=== PATIENT | female | born 1985 | race Two or more races ===

== ENCOUNTER 2024-05-13 21:53 | Emergency (ER) | payer MEDICAID, SELFPAY ==
[2024-05-13 22:03] VITALS: BP 108/74; PULSE 80; RESP 16; TEMP 36.6; O2SAT 98
--- NOTE | 2024-05-13 22:14 | PD.EDRME ---
Rapid Medical Screening Exam RME Arrival date/time: 05/13/24 21:53 38 year old female present to Ed for c/o of flank/dysuria. I have greeted and performed a focused initial assessment of this patient. A comprehensive ED assessment and evaluation of the patient, analysis of all test results, and completion of the medical decision making process will be conducted by additional ED providers. Chief Complaint: Urogenital-Female Vital signs: Vital Signs Temperature 97.9 F 05/13/24 22:03 Pulse Rate 80 05/13/24 22:03 Respiratory Rate 16 05/13/24 22:03 Blood Pressure 108/74 05/13/24 22:03 Pulse Oximetry (%) 98 05/13/24 22:03 Oxygen Delivery Method Room Air 05/13/24 22:03
[2024-05-13 22:44] LABS: Basophils % (Auto) 0 % (0-2.5); Eosinophils # (Auto) 0.1 Thou/mm3 (0.0-0.5); Eosinophils % (Auto) 1 % (0-10); Hematocrit 34.7 % (36.0-46.0); Hemoglobin 12.8 g/dL (12.0-16.0); Immature Granulocytes % (Auto) 0 % (0-0); Immature Granulocytes Auto 0.03 Thou/mm3 (0.00-0.00); Lymphocytes # (Auto) 3.1 Thou/mm3 (1.0-4.8); Lymphocytes % (Auto) 29 % (10-50); Mean Corpuscular HGB Conc 36.9 g/dl (31.0-37.0); Mean Corpuscular Hemoglobin 32.4 pg (25.0-35.0); Mean Corpuscular Volume 88 fL (80-100); Monocytes # (Auto) 0.8 Thou/mm3 (0.0-0.8); Monocytes % (Auto) 7 % (0-12); Neutrophils # (Auto) 6.6 Thou/mm3 (1.8-7.7); Neutrophils % (Auto) 62 % (37-80); Nucleated Red Blood Cell % 0 /100 WBC (0); Platelet Count 324 Thou/mm3 (140-440); RDW Standard Deviation 37.4 fL (36.4-46.3); Red Blood Count 3.95 Miln/mm3 (4.00-5.20); White Blood Count 10.6 Thou/mm3 (3.6-11.0)
[2024-05-13 22:56] LABS: HCG,Qualitative Serum Negative
[2024-05-13 22:59] LABS: Collection Type, Urine Voided
[2024-05-13 23:00] LABS: Alanine Aminotransferase 71 U/L (10-49); Albumin, Serum 4.3 gm/dL (3.5-5.0); Albumin/Globulin Ratio 1.3 (1.2-2.2); Alkaline Phosphatase 95 U/L (46-116); Anion Gap 9 (7-16); Aspartate Amino Transferase 29 U/L (0-34); BUN/Creatinine Ratio 16 Ratio (12-20); Bilirubin,Total 0.2 mg/dL (0.3-1.2); Blood Urea Nitrogen 11 mg/dL (9-23); Calcium 9.8 mg/dL (8.3-10.6); Calcium (Corrected) 9.8 mg/dL (8.5-10.1); Carbon Dioxide 24.8 mMol/L (20.0-31.0); Chloride 103 mMol/L (98-107); Creatinine (Component) 0.7 mg/dL (0.6-1.3); Estimated Creatinine Clearance 91.4 mL/min (>60); Globulin 3.3 gm/dL (2.3-3.5); Glucose 128 mg/dL (74-106); Lipase 47 U/L (12-53); Osmolality,Calculated 275 (275-295); Potassium 3.5 mMol/L (3.4-5.1); Sodium 137 mMol/L (136-145); Total Protein 7.6 gm/dL (5.7-8.2); eGFR > 60 See Note
[2024-05-13 23:33] LABS: Bilirubin,Urine Negative (Negative); Blood,Urine Negative (Negative); Clarity,Urine Clear (Clear/Hazy); Color,Urine Colorless (Lt Yel-Yel); Glucose, Urine Negative (Negative); Ketones,Urine Trace (Negative); Leukocyte Esterase,Urine Negative (Negative); Nitrite,Urine Negative (Negative); Protein,Urine Negative (Neg - Trace); RBC,Urine 1 /hpf (0-3); Specific Gravity,Urine 1.016 (1.001-1.035); Squamous Epithelial Cell,Urine 2 /hpf (0-5); Urobilinogen,Urine Negative mg/dL (0.0-1.0); WBC,Urine 1 /hpf (0-5)
[2024-05-14] MEDS: KETOROLAC INJ 60 MG/2 ML VIAL 30 MG IM
--- NOTE | 2024-05-14 03:12 | XR_ITS ---
Examination: CT abdomen and pelvis without contrast. Coronal 3-D reconstructions. Sagittal 2-D reconstructions. Date and time of exam:May 14, 2024 0343 hrs. Indications: Onset left-sided flank pain today CTDI: vol (mGy): 6.67 DLP: (mGycm): 320 Technique: Axial images of the abdomen have been obtained, 3 mm slice thickness Intravenous contrast material has not been administered. Low dose protocols were performed. One or more of the following dose reduction techniques were used; automated exposure control, adjustment of the mA and/or KV according to patient size, use of iterative reconstruction technique. Findings: Atelectasis and/or pneumonia right base and right middle lobe Severe diffuse fatty infiltration throughout the liver with hepatomegaly 19 cm Spleen is not enlarged Contracted gallbladder with possible gallbladder sludge No pancreatic or adrenal mass No renal or ureteral calculi, no hydronephrosis Aorta normal size Small fat-containing umbilical hernia Normal appendix Colonic diverticulosis 3.4 cm possible left adnexal cyst Urinary bladder intact Moderate osteopenia Impression: Atelectasis versus pneumonia in the right lower lobe and right middle lobe, recommend PA lateral chest follow-up Hepatomegaly with severe diffuse fatty infiltration throughout the liver Recommend hepatobiliary sonography to exclude gallbladder sludge/stones No renal or ureteral calculi, no hydronephrosis Normal appendix Recommend pelvic sonography to assess 3.4 cm left adnexal hypodense mass which may represent a cyst
--- NOTE | 2024-05-14 04:16 | PRELIM_ITS ---
CT scan of the abdomen and pelvis without intravenous contrast (axial sections with sagittal and мария nal reformats) May 14, 2024 at 0343 hours Clinical History: Flank pain for 1 week r/o kidney sto ne. Comparison: None.Findings:Partially imaged right lung consolidation.The gallbladder, pancreas, sp mirian, kidneys and adrenals are unremarkable on this noncontrast study.Hepatomegaly associated with l iver steatosis is suspicious for steatohepatitis.No evidence of bowel obstruction. The appendix is wi thin normal limits.There is no mesenteric or retroperitoneal adenopathy.The urinary bladder is unrema rkable. There is no free fluid or free air.The osseous structures are unremarkable.Fecal loading.Left ovarian cystic lesion measuring 3.7 cm.Impression:1. Hepatomegaly associated with liver steatosis, s uspicious for steatohepatitis.2. Partially imaged right lung consolidations, atelectasis versus scarr ing versus pneumonia. Please, correlate clinically.3. Left ovarian cystic lesion, probably functiona l. Consider correlation with pelvic ultrasound if clinically indicated.4. No evidence of kidney or ur eteral stones.5. Fecal loading. Report Electronically Signed By: Tru Galvin 05/14/2024 4:15:12 AM [EST]
--- NOTE | 2024-05-14 04:45 | EDNOTE_ITS ---
ED Female Urogenital RME/HPI General Chief complaint: Urogenital-Female Stated complaint: L FLANK PAIN, DYSURIA Time Seen by Provider: 05/13/24 22:33 Arrival date/time: 05/13/24 21:53 Limitations: no limitations RME / HPI RME / HPI Narrative: 05/13/24 21:53 38 year old female present to Ed for c/o of flank/dysuria. I have greeted and performed a focused initial assessment of this patient. A comprehensive ED assessment and evaluation of the patient, analysis of all test results, and completion of the medical decision making process will be conducted by additional ED providers. ------ Dr. Danielle's Main ED Evaluation: 38yo female presents to the ED for a chief complaint of left flank pain x 1 week. Patient states her pain is constant and radiates to her back, rating it a 6 out of 10 in severity. She states she's been unable to sleep tonight. She last took Tylenol yesterday without any improvement. She states she feels distended due to not having her menses regularly since November. Patient reports associated constipation. She denies any fever, chills, cough, shortness of breath or any other associated symptoms. Denies any tobacco use. No known allergies. Related Data Previous Rx's ?Medication ?Instructions ?Recorded albuterol sulfate 90 mcg/actuation 1 puff inhalation Q6H PRN SOB #8 07/05/19 aerosol inhaler grams omeprazole 40 mg capsule,delayed 40 mg PO QDAY #30 caps 08/28/20 release albuterol sulfate 90 mcg/actuation 2 puff inhalation Q4H PRN 03/21/22 aerosol inhaler shortness of breath or wheezing #8.5 grams polyethylene glycol 3350 17 17 g PO QDAY constipation 7 days 05/14/24 gram/dose oral powder (ClearLax) #119 grams Allergies Allergy/AdvReac Type Severity Reaction Status Date / Time No Known Allergies Allergy Verified 08/28/20 20:31 Review of Systems Review of Systems Systems Reviewed: All systems reviewed, normal except as documented Past Medical History Past Medical History NEUROLOGIC: Negative Neurological Disorders CARDIAC: Negative Cardiac Disorders or Congestive Heart Failure RESPIRATORY: Positive Asthma; Negative Chronic Obstructive Pulmonary Disease (COPD) GASTROINTESTINAL: Negative Gastrointestinal Disorders GENITOURINARY: Negative Genitourinary Disorders or Renal Disease MUSCULOSKELETAL: Negative Musculoskeletal Disorders ENDOCRINE: Negative Endocrine Disorders, Diabetes Mellitus Type 1 or Diabetes Mellitus Type 2 HEMATOLOGIC: Negative Blood Disorders Family History FAMILY HISTORY: Negative Family Cardiac Disorders Surgical History SURGICAL: Negative Cardiac Surgery, Endocrine Surgery, Ear Surgery, Abdominal Surgery, Nephrectomy, Joint Replacement, Neurologic Surgery or Section Social History SMOKING STATUS: Never smoker ED Exam General Limitations: Present no limitations General appearance: Present alert and in no apparent distress Head Head exam: Present atraumatic Eye Eye exam: Present normal appearance, PERRL and EOMI ENT ENT exam: Present normal exam, normal oropharynx and mucous membranes moist Neck Neck exam: Present normal inspection, full ROM and trachea midline Chest Chest inspection: Present normal inspection and symmetric chest wall rise Respiratory Respiratory exam: Present normal lung sounds bilaterally Cardiovascular Cardiovascular exam: Present regular rate, normal rhythm and normal heart sounds Abdominal Exam Abdominal exam: Present soft, normal bowel sounds and other (big abdomen); Absent rebound Extremities Exam Extremities exam: Present normal inspection and full ROM Back Exam Back exam: Present normal inspection and full ROM; Absent CVA tenderness (R) or CVA tenderness (L) Neurological Exam Neurological exam: Present alert, oriented X3 and CN II-XII intact Psychiatric Psychiatric exam: Present normal affect and normal mood Skin Skin exam: Present warm, dry, intact and normal color Course Quality Measures none Orders Category Date Time Status CT abdomen pelvis wo con Stat Exams 05/14/24 03:12 Taken CBC Stat Lab 05/13/24 22:29 Completed CMP [Comprehensive Metabolic Panel] Stat Lab 05/13/24 22:29 Completed HCG,Qualitative Serum Stat Lab 05/13/24 22:29 Completed Lipase Stat Lab 05/13/24 22:29 Completed UA [Urinalysis] Stat Lab 05/13/24 22:54 Completed Urine Culture Stat Lab 05/13/24 22:15 Received Ketorolac Inj [Toradol Inj] Med 05/13/24 23:49 Discontinued 30 mg IM X1 ONE Vital Signs Vital signs: Vital Signs Temperature 97.9 F 05/13/24 22:03 Pulse Rate 80 05/13/24 22:03 Respiratory Rate 16 05/13/24 22:03 Blood Pressure 108/74 05/13/24 22:03 Pulse Oximetry (%) 98 05/13/24 22:03 Oxygen Delivery Method Room Air 05/13/24 22:03 Pulse ox is 98% on room air, which is normal according to my interpretation. Urogenital - Female Patient data External records reviewed:: [facility] previous records (Per chart review, patient was seen here on 05/02/20 for a UTI.) Clinical information provided by:: patient Social determinants that could affect healthcare access:: none Patient has the following chronic illnesses:: asthma How is presenting disease/condition affected by chronic disease/condition?: uneffected by Evaluation data The following diagnostics were reviewed and interpreted by me:: lab results and radiology exam(s) Lab and/or radiology exams considered but not ordered:: none Interpretation Summary: CBC is normal, CMP is normal, Lipase is normal, HCG is negative, UA is unrem arkable, according to my interpretation. ---- I have personally reviewed the radiology data and agree with the radiologist's interpretation below: Telerad Preliminary Report Draft Patient: MICAH LEE Record#: [id number] Birthdate: 1985 Age/Sex: 38 / F Location: [facility] Attending Dr: Ordering Physician: Date of Service: Procedure(s): Accession Number(s): cc: ~ CT scan of the abdomen and pelvis without intravenous contrast (axial sections with sagittal and coronal reformats) May 14, 2024 at 0343 hours Clinical History: Flank pain for 1 week r/o kidney stone. Comparison: None. Findings: Partially imaged right lung consolidation. The gallbladder, pancreas, spleen, kidneys and adrenals are unremarkable on this noncontrast study. Hepatomegaly associated with liver steatosis is suspicious for steatohepatitis. No evidence of bowel obstruction. The appendix is within normal limits. There is no mesenteric or retroperitoneal adenopathy. The urinary bladder is unremarkable. There is no free fluid or free air. The osseous structures are unremarkable. Fecal loading. Left ovarian cystic lesion measuring 3.7 cm. Impression: 1. Hepatomegaly associated with liver steatosis, suspicious for steatohepatitis. 2. Partially imaged right lung consolidations, atelectasis versus scarring versus pneumonia. Please, correlate clinically. 3. Left ovarian cystic lesion, probably functional. Consider correlation with pelvic ultrasound if clinically indicated. 4. No evidence of kidney or ureteral stones. 5. Fecal loading. Report Electronically Signed By: Tru Galvin 05/14/2024 4:15:12 AM [EST] Medications / Prescriptions Medications or Prescriptions considered but not ordered:: none Medication administrations:: Medication Administration History Discontinued Medications Ketorolac Tromethamine (Ketorolac Inj 60 Mg/2 Ml Vial) 30 mg IM X1 ONE Stop: 05/13/24 23:50 Last Admin: 05/14/24 00:00 Dose: 30 mg Documented By: OA see above Consultations Consultation(s) initiated? (list below): No Diagnosis Urogenital Female Differential Diagnosis: urinary tract infection and other (kidney stone, constipation, atelectasis, GERD) Most likely diagnosis given after review of the tests above:: see below Admission Indicated Admission indicated?: not indicated Admission Request Was there a request for admission?: No Disposition Plan Disposition Plan: Discharge Discharge Attestation Discharge Attestation: The patient and all family members were given an opportunity to ask questions and understood the discharge instructions. Discharge instructions specifically effects, indications for sooner follow up or return to the emergency department, and the expected course of current diagnosis. Patient condition: Stable Discharge Plan Plan Patient Disposition: HOME (Self Care) Prescriptions/Referrals Prescriptions/Med Rec: New polyethylene glycol 3350 [ClearLax] 17 gram/dose powder 17 g PO QDAY 7 Days Qty: 119 0RF No Action omeprazole 40 mg capsule,delayed release(DR/EC) 40 mg PO QDAY Qty: 30 0RF albuterol sulfate 90 mcg/actuation HFA aerosol inhaler 1 puff INH Q6H PRN (Reason: SOB) Qty: 8 0RF albuterol sulfate 90 mcg/actuation HFA aerosol inhaler 2 puff inhalation Q4H PRN (Reason: shortness of breath or wheezing) Qty: 8.5 0RF Referrals: No Primary/Family,Physician [Primary Care Provider] - In 1 week Problem List Clinical Impression: Ovarian cyst, Acute left flank pain Patient/Caregiver Discharge Instructions Education Materials: ED Pain, Acute, Uncertain Cause Print Language: Ukrainian Stand Alone Forms: Mariana Award Info., Patient Portal Info Letter
[2024-05-14 05:02] VITALS: BP 110/70; PULSE 88; RESP 18; TEMP 36.7; O2SAT 99
== END 2024-05-14 05:04 | disposition home or self-care (01) ==
PROVIDERS: Physician Assistant; Emergency Provider Emergency Medicine
DX: N83.202 Unspecified ovarian cyst, left side (principal); K76.0 Fatty (change of) liver, not elsewhere classified; K56.41 Fecal impaction
CPT/HCPCS: 36415; 74176; 80053; 81001; 83690; 84703; 85025; 87086; 96372; 99284; J1885